=== PATIENT | female | born 1965 | race Two or more races ===

== ENCOUNTER 2018-09-15 12:37 | Outpatient (CLI) | payer OTHER | END 2018-09-15 18:05 | disposition home or self-care (01) | LOC: LAB 12:37 | DX: J11.1 Influenza due to unidentified influenza virus with other respiratory manifestations (principal); J20.0 Acute bronchitis due to Mycoplasma pneumoniae ==

== ENCOUNTER 2018-12-28 06:00 | Day surgery (SDC) | payer OTHER ==
[~2018-12-28 06:00] MED LIST: ALL DAY ALLERGY10 M3 PO; ATARAX25 MG PO
[2018-12-28] MEDS ORDERED: MACROBID 100 M100 MG PO (09:13)
[2018-12-28] MEDS ORDERED: ULTRACET PO (09:15)
== END 2018-12-28 11:35 | disposition home or self-care (01) ==
LOC: CIR.AMB 06:00
DX: N39.3 Stress incontinence (female) (male) (principal)
CPT/HCPCS: 57288; C1771

== ENCOUNTER 2021-02-14 08:00 | Outpatient (CLI) | payer OTHER ==
[~2021-02-14 08:00] MED LIST changes: +MACROBID 100 M100 MG PO; +ULTRACET PO
== END 2021-02-14 08:30 | disposition home or self-care (01) ==
LOC: PPH VACUNA 08:00
DX: Z23 Encounter for immunization (principal)

== ENCOUNTER 2021-03-07 09:25 | Outpatient (CLI) | payer OTHER | END 2021-03-07 10:00 | disposition home or self-care (01) | LOC: PPH VACUNA 09:25 | PROVIDERS: ATTEND Emergency Medicine Pediatric Emergency Medicine | DX: Z23 Encounter for immunization (principal) ==